=== PATIENT | male | born 1960 | race Hispanic/Latino ===

== ENCOUNTER 2017-09-27 11:00 | Inpatient (IN) | payer MEDICAID, OTHER ==
[~2017-09-27] VITALS: Ht 170.2 cm; Wt 78.9 kg
[~2017-09-27 11:00] MED LIST: BACTRIM-DS1 EA ORAL; DOXYCYCLINE MO100 MG ORAL; KEPPRA LIQ100 MG/1 M NG; KEPPRA500 M3 PO; KEPPRA500 MG ORAL; KEPPRA500 MG PO; KEPRA; LEVETIRACE100 MG/1 M GT; LORAZEPAM1 MG ORAL; METOPROLOL TART25 MG ORAL; NKM; PROTONIX40 MG ORAL; RANITIDINE HCL150 M2 PO; RANITIDINE HCL150 MG ORAL; SUCRALFATE1 GM; SULFAMETHOXAZO480 ML ORAL; TOPAMAX100 MG NG; TOPIRAMATE100 MG ORAL; TOPIRAMATE100 MG PO; TOPIRAMATE25 MG PO; UNOBMED; ZYPREXA5 MG ORAL
[2017-09-27] MEDS ORDERED: KEPPRA1000 MG ORAL (11:02)
[2017-09-27 11:08] VITALS: BP 150/89
[2017-09-27] MEDS ORDERED: Sodium Chloride 500ML 500 ML IV ONE (11:34)
[2017-09-27] MEDS ORDERED: levETIRAcetam 1,000mg/NS100ml 100 ML IVPB ONE (11:45)
[2017-09-27 12:34] LABS: HEMATOCRIT 42.4 % (42.0-52.0); MEAN CORPUSCULAR VOLUME 103 FL (80-99); PLATELET COUNT 202 K/UL (150-450); RED BLOOD COUNT 4.12 M/UL (4.70-6.10); RED CELL DISTRIBUTION WIDTH 13.9 % (11.6-14.8); WHITE BLOOD COUNT 10.4 K/UL (4.8-10.8)
[2017-09-27 12:45] LABS: ALANINE AMINOTRANSFERASE 86 U/L (12-78); ALBUMIN 4.2 G/DL (3.4-5.0); ALBUMIN/GLOBULIN RATIO 1.1 (1.0-2.7); ALKALINE PHOSPHATASE 92 U/L (46-116); ANION GAP 32 mmol/L (5-15); ASPARTATE AMINO TRANSFERASE 166 U/L (15-37); BILIRUBIN,TOTAL 0.8 MG/DL (0.2-1.0); BLOOD UREA NITROGEN 15 mg/dL (7-18); CALCIUM 8.9 MG/DL (8.5-10.1); CHLORIDE 100 MMOL/L (98-107); CREATININE 1.9 MG/DL (0.55-1.30); POTASSIUM 4.7 MMOL/L (3.5-5.1); SODIUM 140 MMOL/L (136-145)
[2017-09-27 12:50] LABS: CARBON DIOXIDE 8 MMOL/L (21-32)
[2017-09-27 13:07] VITALS: BP 158/82
[2017-09-27] MEDS ORDERED: LORazepam Inj 2mg/ml 1ml IV ONE ×2 (13:15→14:30)
--- NOTE | 2017-09-27 13:57 | Emergency Room Report ---
History of Present Illness General Chief Complaint: Seizure Source: Patient, Medical Record Present Illness HPI 57-year-old male presents ED for evaluation. Patient had a seizure at home. Witnessed by family. 1 minute while in bed. No head injury. History of seizures takes Keppra. Patient states he did not take his morning dose of Keppra. Denies alcohol use. Denies any drug use. Denies any headaches fevers or chills. Denies nausea or vomiting. No other aggravating relieving factors. Denies any other associated symptoms Allergies: Coded Allergies: AMOXICILLIN (Verified Allergy, Unknown, 09/07/08) EGG (Verified Allergy, Unknown, RASH, 12/23/10) PENICILLIN (Unverified Allergy, Unknown, 01/05/15) PENICILLINS (Verified Allergy, Unknown, Rash, 01/27/12) Pork (Unverified Allergy, Unknown, 12/28/13) copied from uncoded section UNABLE TO ASSESS (Unverified , 01/25/15) Patient History Past Medical History: seizures Past Surgical History: none Pertinent Family History: none Social History: Reports: alcohol use; Denies: smoking, drug use Immunizations: UTD Reviewed Nursing Documentation: PMH: Agreed; PSxH: Agreed Nursing Documentation-PMH Past Medical History: No History, Except For Hx Cardiac Problems: Yes Hx Hypertension: Yes Hx Diabetes: Yes Hx Cancer: No Hx Gastrointestinal Problems: No Hx Neurological Problems: Yes - seizure Hx Seizures: Yes Review of Systems All Other Systems: negative except mentioned in HPI Physical Exam Vital Signs Date Time Temp Pulse Resp B/P (MAP) Pulse Ox O2 Delivery O2 Flow Rate FiO2 09/27/17 10:58 98.8 120 13 154/86 98 Room Air 98.8 Sp02 EP Interpretation: reviewed, normal General Appearance: no apparent distress, alert, GCS 15, non-toxic Head: normocephalic, atraumatic Eyes: bilateral eye normal inspection, bilateral eye PERRL ENT: hearing grossly normal, normal pharynx, no angioedema, normal voice Neck: full range of motion, supple/symm/no masses Respiratory: chest non-tender, lungs clear, normal breath sounds, speaking full sentences Cardiovascular #1: regular rate, rhythm, no edema Cardiovascular #2: 2+ carotid (R), 2+ carotid (L), 2+ radial (R), 2+ radial (L) , 2+ dorsalis pedis (R), 2+ dorsalis pedis (L) Gastrointestinal: normal bowel sounds, non tender, soft, non-distended, no guarding, no rebound Rectal: deferred Genitourinary: normal inspection, no CVA tenderness Musculoskeletal: back normal, gait/station normal, normal range of motion, non- tender Neurologic: alert, oriented x3, responsive, motor strength/tone normal, sensory intact, speech normal Psychiatric: judgement/insight normal, memory normal, mood/affect normal, no suicidal/homicidal ideation Reflexes: 3+ bicep (R), 3+ bicep (L), 3+ tricep (R), 3+ tricep (L), 3+ knee (R) , 3+ knee (L) Skin: normal color, no rash, warm/dry, well hydrated Lymphatic: no adenopathy Medical Decision Making Diagnostic Impression: Primary Impression: Acute alcoholic intoxication Qualified Codes: F10.929 - Alcohol use, unspecified with intoxication, unspecified Additional Impression: Seizure Labs Test 09/27/17 12:07 White Blood Count 10.4 K/UL (4.8-10.8) Red Blood Count 4.12 M/UL (4.70-6.10) Hemoglobin 14.0 G/DL (14.2-18.0) Hematocrit 42.4 % (42.0-52.0) Mean Corpuscular Volume 103 FL (80-99) Mean Corpuscular Hemoglobin 33.9 PG (27.0-31.0) Mean Corpuscular Hemoglobin Concent 33.0 G/DL (32.0-36.0) Red Cell Distribution Width 13.9 % (11.6-14.8) Platelet Count 202 K/UL (150-450) Mean Platelet Volume 8.5 FL (6.5-10.1) Neutrophils (%) (Auto) % (45.0-75.0) Lymphocytes (%) (Auto) % (20.0-45.0) Monocytes (%) (Auto) % (1.0-10.0) Eosinophils (%) (Auto) % (0.0-3.0) Basophils (%) (Auto) % (0.0-2.0) Differential Total Cells Counted 100 Neutrophils % (Manual) 92 % (45-75) Lymphocytes % (Manual) 4 % (20-45) Monocytes % (Manual) 3 % (1-10) Eosinophils % (Manual) 0 % (0-3) Basophils % (Manual) 1 % (0-2) Band Neutrophils 0 % (0-8) Platelet Estimate Adequate Platelet Morphology Normal Macrocytosis 1+ Sodium Level 140 MMOL/L (136-145) Potassium Level 4.7 MMOL/L (3.5-5.1) Chloride Level 100 MMOL/L (98-107) Carbon Dioxide Level 8 MMOL/L (21-32) Anion Gap 32 mmol/L (5-15) Blood Urea Nitrogen 15 mg/dL (7-18) Creatinine 1.9 MG/DL (0.55-1.30) Estimat Glomerular Filtration Rate 36.5 mL/min (>60) Glucose Level 127 MG/DL (74-106) Calcium Level 8.9 MG/DL (8.5-10.1) Total Bilirubin 0.8 MG/DL (0.2-1.0) Aspartate Amino Transf (AST/SGOT) 166 U/L (15-37) Alanine Aminotransferase (ALT/SGPT) 86 U/L (12-78) Alkaline Phosphatase 92 U/L (46-116) Total Protein 8.1 G/DL (6.4-8.2) Albumin 4.2 G/DL (3.4-5.0) Globulin 3.9 g/dL Albumin/Globulin Ratio 1.1 (1.0-2.7) Salicylates Level 2.5 ug/mL (2.8-20) Acetaminophen Level < 2 MCG/ML (10-30) Serum Alcohol 91 mg/dL Last Vital Signs Date Time Temp Pulse Resp B/P (MAP) Pulse Ox O2 Delivery O2 Flow Rate FiO2 09/27/17 13:07 98.4 122 18 158/82 98 Room Air 98.4 Status: improved Referrals: [facility],REFERRING (PCP) Caleb Pandya MD Sep 27, 2017 13:57
[2017-09-27 14:59] LABS: APPEARANCE,URINE CLEAR; BILIRUBIN, URINE NEGATIVE (NEGATIVE); GLUCOSE, URINE (UA) NEGATIVE (NEGATIVE); KETONES,URINE 3+ (NEGATIVE); LEUKOCYTE ESTERASE ,URINE NEGATIVE (NEGATIVE); NITRITE,URINE NEGATIVE (NEGATIVE); PH,URINE 5 (4.5-8.0); PROTEIN,URINE 2+ (NEGATIVE); UROBILINOGEN,URINE 4 MG/DL (0.0-1.0)
[2017-09-27 15:00] VITALS: BP 153/84
[2017-09-27 15:11] LABS: COLOR,URINE YELLOW
[2017-09-27 17:10] VITALS: BP 152/80
[2017-09-27] MEDS ORDERED: Mylanta II UD 30ml ORAL PRN ×2 (17:45)
[2017-09-27] MEDS ORDERED: Miralax 17gm pkt ORAL PRN (17:45)
[2017-09-27] MEDS ORDERED: Morphine Sulfate 2mg/ml Inj IVP PRN (17:45)
[2017-09-27] MEDS ORDERED: chlordiazePOXIDE 25mg Cap ORAL PRN (17:45)
[2017-09-27] MEDS ORDERED: LORazepam Inj 2mg/ml 1ml IV PRN ×2 (17:45)
[2017-09-27 20:00] VITALS: BP 150/89
[2017-09-27] MEDS ORDERED: Folic Acid 1 MG, Magnesium Sulfate 2,000 MG, Multivitamin - 12 Injection 10 ML in NS w/... IV SCH (20:00)
[2017-09-27] MEDS ORDERED: Thiamine HCl 100 MG in D5W 110 ML IVPB SCH (20:00)
[2017-09-27] MEDS: Heparin 5000 units/ml inj SUBQ SCH (20:48)
[2017-09-27] MEDS ORDERED: Heparin 5000 units/ml inj SUBQ SCH (21:00)
[2017-09-27] MEDS ORDERED: Zolpidem 5mg tab ORAL PRN (21:00)
[2017-09-28] VITALS: BP 138/78
[2017-09-28 04:00] VITALS: BP 142/82
[2017-09-28 06:00] LABS: BASOPHILS % (AUTO) 1.7 % (0.0-2.0); EOSINOPHILS % (AUTO) 0.3 % (0.0-3.0); HEMATOCRIT 36.5 % (42.0-52.0); HEMOGLOBIN 12.9 G/DL (14.2-18.0); LYMPHOCYTES % (AUTO) 13.7 % (20.0-45.0); MEAN CORPUSCULAR VOLUME 102 FL (80-99); MONOCYTES % (AUTO) 12.1 % (1.0-10.0); NEUTROPHILS % (AUTO) 72.2 % (45.0-75.0); PLATELET COUNT 138 K/UL (150-450); RED BLOOD COUNT 3.58 M/UL (4.70-6.10); RED CELL DISTRIBUTION WIDTH 13.4 % (11.6-14.8); WHITE BLOOD COUNT 7.1 K/UL (4.8-10.8)
[2017-09-28 06:07] LABS: ALANINE AMINOTRANSFERASE 67 U/L (12-78); ALBUMIN 3.6 G/DL (3.4-5.0); ALBUMIN/GLOBULIN RATIO 1.1 (1.0-2.7); ALKALINE PHOSPHATASE 74 U/L (46-116); ANION GAP 16 mmol/L (5-15); ASPARTATE AMINO TRANSFERASE 87 U/L (15-37); BILIRUBIN,TOTAL 1.9 MG/DL (0.2-1.0); BLOOD UREA NITROGEN 16 mg/dL (7-18); CALCIUM 8.1 MG/DL (8.5-10.1); CARBON DIOXIDE 21 MMOL/L (21-32); CHLORIDE 101 MMOL/L (98-107); CREATININE 1.4 MG/DL (0.55-1.30); POTASSIUM 4.1 MMOL/L (3.5-5.1); SODIUM 138 MMOL/L (136-145)
[2017-09-28 06:32] LABS: BILIRUBIN,DIRECT 0.6 MG/DL (0.0-0.3)
[2017-09-28 08:00] VITALS: BP 137/80
[2017-09-28] MEDS: Heparin 5000 units/ml inj SUBQ SCH (09:00)
--- NOTE | 2017-09-28 11:07 | History and Physical ---
History of Present Illness General Date patient seen: Sep 27, 2017 Reason for Hospitalization: Seizure Present Illness HPI 57-year-old male presents ED for evaluation. Patient had a seizure at home. Witnessed by family. 1 minute while in bed. No head injury. History of seizures takes Keppra. Patient states he did not take his morning dose of Keppra. Denies alcohol use. Denies any drug use. Denies any headaches fevers or chills. Denies nausea or vomiting. No other aggravating relieving factors. Denies any other associated symptoms Allergies: Coded Allergies: AMOXICILLIN (Verified Allergy, Unknown, 09/07/08) EGG (Verified Allergy, Unknown, RASH, 12/23/10) PENICILLIN (Unverified Allergy, Unknown, 01/05/15) PENICILLINS (Verified Allergy, Unknown, Rash, 01/27/12) Pork (Unverified Allergy, Unknown, 12/28/13) copied from uncoded section UNABLE TO ASSESS (Unverified , 01/25/15) Medication History Scheduled Levetiracetam (Keppra), 1,000 MG ORAL BID, (Reported) Levetiracetam (Keppra), 1,500 MG ORAL EVERY 12 HOURS, (Reported) Levetiracetam (Levetiracetam), 500 MG PO BID, (Reported) Levetiracetam (Keppra), 1,000 MG ORAL TID, (Reported) Levetiracetam* (Levetiracetam*), Unknown Dose GT BID, (Reported) Metoprolol Tartrate* (Metoprolol Tartrate*), 25 MG ORAL EVERY 12 HOURS, ( Reported) No Known Medications* (NKM - No Known Medications*), 0 ., (Reported) Olanzapine* (Zyprexa*), 5 MG ORAL DAILY, (Reported) Pantoprazole* (Protonix*), 40 MG ORAL EVERY 12 HOURS, (Reported) Miscellaneous Medications Sucralfate* (Carafate*), (Reported) Unable to Obtain Medications (Unable To Obtain Meds), (Reported) Patient History Healthcare decision maker Resuscitation status Full Code Advanced Directive on File Past Medical/Surgical History Past Medical/Surgical History: (1) Psychosis (2) Seizure (3) Alcohol abuse Review of Systems All Other Systems: negative except mentioned in HPI Physical Exam General Appearance: WD/WN, no apparent distress Lines, tubes and drains: peripheral HEENT: normocephalic, atraumatic Neck: non-tender, normal alignment Respiratory/Chest: chest wall non-tender, lungs clear Breasts: no masses Cardiovascular/Chest: normal rate Abdomen: normal bowel sounds, hyperactive bowel sounds Genitourinary/Rectal: normal genital exam Last 24 Hour Vital Signs Date Time Temp Pulse Resp B/P (MAP) Pulse Ox O2 Delivery O2 Flow Rate FiO2 09/28/17 08:00 82 09/28/17 08:00 97.7 84 18 137/80 96 Room Air 97.7 09/28/17 04:00 98.2 89 20 142/82 99 Room Air 98.2 09/28/17 04:00 87 09/28/17 00:00 101 09/28/17 00:00 98.4 105 20 138/78 98 Room Air 98.4 09/27/17 20:00 99.3 113 20 150/89 98 Room Air 99.3 09/27/17 20:00 114 09/27/17 19:20 98.5 118 16 156/77 98 Room Air 98.4 09/27/17 19:14 112 09/27/17 17:10 98.4 115 17 152/80 98 Room Air 98.4 09/27/17 15:00 98.1 113 16 153/84 96 Room Air 98.1 09/27/17 13:07 98.4 122 18 158/82 98 Room Air 98.4 09/27/17 11:08 129 28 Room Air 09/27/17 11:08 98.8 129 28 150/89 100 Room Air 98.8 Intake and Output 09/27/17 09/28/17 19:00 07:00 Intake Total 1600 ml Output Total 200 ml Balance 1400 ml IV Total 1600 ml Output Emesis 200 ml # Voids 3 Laboratory Tests Test 09/27/17 12:07 09/27/17 14:35 09/28/17 04:50 White Blood Count 10.4 K/UL (4.8-10.8) 7.1 K/UL (4.8-10.8) Red Blood Count 4.12 M/UL (4.70-6.10) L 3.58 M/UL (4.70-6.10) L Hemoglobin 14.0 G/DL (14.2-18.0) L 12.9 G/DL (14.2-18.0) L Hematocrit 42.4 % (42.0-52.0) 36.5 % (42.0-52.0) L Mean Corpuscular Volume 103 FL (80-99) H 102 FL (80-99) H Mean Corpuscular Hemoglobin 33.9 PG (27.0-31.0) H 36.1 PG (27.0-31.0) H Mean Corpuscular Hemoglobin Concent 33.0 G/DL (32.0-36.0) 35.4 G/DL (32.0-36.0) Red Cell Distribution Width 13.9 % (11.6-14.8) 13.4 % (11.6-14.8) Platelet Count 202 K/UL (150-450) 138 K/UL (150-450) L Mean Platelet Volume 8.5 FL (6.5-10.1) 8.8 FL (6.5-10.1) Neutrophils (%) (Auto) % (45.0-75.0) 72.2 % (45.0-75.0) Lymphocytes (%) (Auto) % (20.0-45.0) 13.7 % (20.0-45.0) L Monocytes (%) (Auto) % (1.0-10.0) 12.1 % (1.0-10.0) H Eosinophils (%) (Auto) % (0.0-3.0) 0.3 % (0.0-3.0) Basophils (%) (Auto) % (0.0-2.0) 1.7 % (0.0-2.0) Differential Total Cells Counted 100 Neutrophils % (Manual) 92 % (45-75) H Lymphocytes % (Manual) 4 % (20-45) L Monocytes % (Manual) 3 % (1-10) Eosinophils % (Manual) 0 % (0-3) Basophils % (Manual) 1 % (0-2) Band Neutrophils 0 % (0-8) Platelet Estimate Adequate Platelet Morphology Normal Macrocytosis 1+ Sodium Level 140 MMOL/L (136-145) 138 MMOL/L (136-145) Potassium Level 4.7 MMOL/L (3.5-5.1) 4.1 MMOL/L (3.5-5.1) Chloride Level 100 MMOL/L (98-107) 101 MMOL/L (98-107) Carbon Dioxide Level 8 MMOL/L (21-32) *L 21 MMOL/L (21-32) Anion Gap 32 mmol/L (5-15) H 16 mmol/L (5-15) H Blood Urea Nitrogen 15 mg/dL (7-18) 16 mg/dL (7-18) Creatinine 1.9 MG/DL (0.55-1.30) H 1.4 MG/DL (0.55-1.30) H Estimat Glomerular Filtration Rate 36.5 mL/min (>60) 51.9 mL/min (>60) Glucose Level 127 MG/DL (74-106) H 93 MG/DL (74-106) Calcium Level 8.9 MG/DL (8.5-10.1) 8.1 MG/DL (8.5-10.1) L Total Bilirubin 0.8 MG/DL (0.2-1.0) 1.9 MG/DL (0.2-1.0) H Aspartate Amino Transf (AST/SGOT) 166 U/L (15-37) H 87 U/L (15-37) H Alanine Aminotransferase (ALT/SGPT) 86 U/L (12-78) H 67 U/L (12-78) Alkaline Phosphatase 92 U/L (46-116) 74 U/L (46-116) Total Protein 8.1 G/DL (6.4-8.2) 6.9 G/DL (6.4-8.2) Albumin 4.2 G/DL (3.4-5.0) 3.6 G/DL (3.4-5.0) Globulin 3.9 g/dL 3.3 g/dL Albumin/Globulin Ratio 1.1 (1.0-2.7) 1.1 (1.0-2.7) Salicylates Level 2.5 ug/mL (2.8-20) L Acetaminophen Level < 2 MCG/ML (10-30) L Serum Alcohol 91 mg/dL Urine Color Yellow Urine Appearance Clear Urine pH 5 (4.5-8.0) Urine Specific [place] 1.020 (1.005-1.035) Urine Protein 2+ (NEGATIVE) H Urine Glucose (UA) Negative (NEGATIVE) Urine Ketones 3+ (NEGATIVE) H Urine Occult Blood 2+ (NEGATIVE) H Urine Nitrite Negative (NEGATIVE) Urine Bilirubin Negative (NEGATIVE) Urine Urobilinogen 4 MG/DL (0.0-1.0) H Urine Leukocyte Esterase Negative (NEGATIVE) Urine RBC 2-4 /HPF (0 - 0) H Urine WBC 0-2 /HPF (0 - 0) Urine Squamous Epithelial Cells None /LPF (NONE/OCC) Urine Bacteria Few /HPF (NONE) Direct Bilirubin 0.6 MG/DL (0.0-0.3) H Height (Feet): 5 Height (Inches): 7.00 Weight (Pounds): 174 Medications Current Medications Medications (Trade) Dose Ordered Sig/Tosha Route PRN Reason Start Time Stop Time Status Last Admin Dose Admin Acetaminophen (Tylenol) 650 mg Q4H PRN ORAL fever (temp>100.5F) 09/27/17 17:45 10/27/17 17:44 Al Hydroxide/Mg Hydroxide (Mylanta II) 30 ml Q6H PRN ORAL dyspepsia 09/27/17 17:45 10/27/17 17:44 Chlordiazepoxide (Librium) 25 mg Q6H PRN ORAL Agitation 09/27/17 17:45 10/04/17 17:44 Dextrose (Dextrose 50%) 25 ml STAT PRN IV Hypoglycemia 09/27/17 17:45 10/27/17 17:44 Dextrose (Dextrose 50%) 50 ml STAT PRN IV Hypoglycemia 09/27/17 17:45 10/27/17 17:44 Folic Acid 1 mg/ Magnesium Sulfate 2000 mg/ Multivitamins 10 ml/Sodium Chloride 1,014.2 ml @ 124.876 mls/hr Q24H IV 09/27/17 20:00 10/27/17 19:59 09/27/17 20:31 Heparin Sodium (Porcine) (Heparin 5000 units/ml) 5,000 units EVERY 12 HOURS SUBQ 09/27/17 21:00 10/27/17 20:59 09/27/17 20:48 Lorazepam (Ativan 2mg/ml 1ml) 2 mg Q1H PRN IV seizures 09/27/17 17:45 10/04/17 17:44 Morphine Sulfate (Morphine Sulfate) 1 mg Q4H PRN IVP For Pain 09/27/17 17:45 10/04/17 17:44 Ondansetron HCl (Zofran) 4 mg Q6H PRN IVP Nausea & Vomiting 09/27/17 17:45 10/27/17 17:44 Polyethylene Glycol (Miralax) 17 gm HSPRN PRN ORAL Constipation 09/27/17 17:45 10/27/17 17:44 Thiamine HCl 100 mg/Dextrose 111 ml @ 222 mls/hr Q24H IVPB 09/27/17 20:00 10/27/17 19:59 09/27/17 20:31 Zolpidem Tartrate (Ambien) 5 mg HSPRN PRN ORAL Insomnia 09/27/17 21:00 10/04/17 20:59 Assessment/Plan Problem List: (1) Epileptic seizure, generalized ICD Codes: G40.309 - Generalized idiopathic epilepsy and epileptic syndromes, not intractable, without status epilepticus SNOMED: 90206870 (2) Alcohol abuse ICD Codes: F10.10 - Alcohol abuse, uncomplicated SNOMED: 90906575 (3) Acute alcoholic intoxication ICD Codes: F10.129 - Alcohol abuse with intoxication, unspecified SNOMED: 26041016 Qualifiers: Qualified Codes: F10.929 - Alcohol use, unspecified with intoxication, unspecified Assessment/Plan symptomatic treatment iv fluids seizure precaution Cheryl Sarkar MD Sep 28, 2017 11:07
--- NOTE | 2017-09-28 11:08 | Pulmonology Progress Note ---
Assessment/Plan Problems: (1) Epileptic seizure, generalized (2) Alcohol abuse (3) Acute alcoholic intoxication Assessment/Plan improving no more seizures resume [facility] home Subjective ROS Limited/Unobtainable: No Interval Events: doing better Allergies: Coded Allergies: AMOXICILLIN (Verified Allergy, Unknown, 09/07/08) EGG (Verified Allergy, Unknown, RASH, 12/23/10) PENICILLIN (Unverified Allergy, Unknown, 01/05/15) PENICILLINS (Verified Allergy, Unknown, Rash, 01/27/12) Pork (Unverified Allergy, Unknown, 12/28/13) copied from uncoded section UNABLE TO ASSESS (Unverified , 01/25/15) Objective Last 24 Hour Vital Signs Date Time Temp Pulse Resp B/P (MAP) Pulse Ox O2 Delivery O2 Flow Rate FiO2 09/28/17 08:00 82 09/28/17 08:00 97.7 84 18 137/80 96 Room Air 97.7 09/28/17 04:00 98.2 89 20 142/82 99 Room Air 98.2 09/28/17 04:00 87 09/28/17 00:00 101 09/28/17 00:00 98.4 105 20 138/78 98 Room Air 98.4 09/27/17 20:00 99.3 113 20 150/89 98 Room Air 99.3 09/27/17 20:00 114 09/27/17 19:20 98.5 118 16 156/77 98 Room Air 98.4 09/27/17 19:14 112 09/27/17 17:10 98.4 115 17 152/80 98 Room Air 98.4 09/27/17 15:00 98.1 113 16 153/84 96 Room Air 98.1 09/27/17 13:07 98.4 122 18 158/82 98 Room Air 98.4 09/27/17 11:08 129 28 Room Air 09/27/17 11:08 98.8 129 28 150/89 100 Room Air 98.8 Intake and Output 09/27/17 09/28/17 19:00 07:00 Intake Total 1600 ml Output Total 200 ml Balance 1400 ml IV Total 1600 ml Output Emesis 200 ml # Voids 3 General Appearance: WD/WN HEENT: normocephalic Respiratory/Chest: chest wall non-tender, lungs clear Cardiovascular: normal peripheral pulses, normal rate Abdomen: normal bowel sounds, no organomegaly Extremities: no cyanosis Skin: no rash Laboratory Tests 09/27/17 12:07: White Blood Count 10.4, Red Blood Count 4.12L, Hemoglobin 14.0L, Hematocrit 42.4 , Mean Corpuscular Volume 103H, Mean Corpuscular Hemoglobin 33.9H, Mean Corpuscular Hemoglobin Concent 33.0, Red Cell Distribution Width 13.9, Platelet Count 202, Mean Platelet Volume 8.5, Neutrophils (%) (Auto) , Lymphocytes (%) ( Auto) , Monocytes (%) (Auto) , Eosinophils (%) (Auto) , Basophils (%) (Auto) , Differential Total Cells Counted 100, Neutrophils % (Manual) 92H, Lymphocytes % (Manual) 4L, Monocytes % (Manual) 3, Eosinophils % (Manual) 0, Basophils % ( Manual) 1, Band Neutrophils 0, Platelet Estimate Adequate, Platelet Morphology Normal, Macrocytosis 1+, Sodium Level 140, Potassium Level 4.7, Chloride Level 100, Carbon Dioxide Level 8*L, Anion Gap 32H, Blood Urea Nitrogen 15, Creatinine 1.9H, Estimat Glomerular Filtration Rate 36.5, Glucose Level 127H, Calcium Level 8.9, Total Bilirubin 0.8, Aspartate Amino Transf (AST/SGOT) 166H, Alanine Aminotransferase (ALT/SGPT) 86H, Alkaline Phosphatase 92, Total Protein 8.1, Albumin 4.2, Globulin 3.9, Albumin/Globulin Ratio 1.1, Salicylates Level 2.5L, Acetaminophen Level < 2L, Serum Alcohol 91 09/27/17 14:35: Urine Color Yellow, Urine Appearance Clear, Urine pH 5, Urine Specific [place] 1.020, Urine Protein 2+H, Urine Glucose (UA) Negative, Urine Ketones 3+H, Urine Occult Blood 2+H, Urine Nitrite Negative, Urine Bilirubin Negative, Urine Urobilinogen 4H, Urine Leukocyte Esterase Negative, Urine RBC 2-4H, Urine WBC 0- 2, Urine Squamous Epithelial Cells None, Urine Bacteria Few 09/28/17 04:50: White Blood Count 7.1, Red Blood Count 3.58L, Hemoglobin 12.9L, Hematocrit 36.5L , Mean Corpuscular Volume 102H, Mean Corpuscular Hemoglobin 36.1H, Mean Corpuscular Hemoglobin Concent 35.4, Red Cell Distribution Width 13.4, Platelet Count 138L, Mean Platelet Volume 8.8, Neutrophils (%) (Auto) 72.2, Lymphocytes ( %) (Auto) 13.7L, Monocytes (%) (Auto) 12.1H, Eosinophils (%) (Auto) 0.3, Basophils (%) (Auto) 1.7, Sodium Level 138, Potassium Level 4.1, Chloride Level 101, Carbon Dioxide Level 21, Anion Gap 16H, Blood Urea Nitrogen 16, Creatinine 1.4H, Estimat Glomerular Filtration Rate 51.9, Glucose Level 93, Calcium Level 8.1L, Total Bilirubin 1.9H, Aspartate Amino Transf (AST/SGOT) 87H, Alanine Aminotransferase (ALT/SGPT) 67, Alkaline Phosphatase 74, Total Protein 6.9, Albumin 3.6, Globulin 3.3, Albumin/Globulin Ratio 1.1, Direct Bilirubin 0.6H Current Medications Medications (Trade) Dose Ordered Sig/Tosha Route PRN Reason Start Time Stop Time Status Last Admin Dose Admin Acetaminophen (Tylenol) 650 mg Q4H PRN ORAL fever (temp>100.5F) 09/27/17 17:45 10/27/17 17:44 Al Hydroxide/Mg Hydroxide (Mylanta II) 30 ml Q6H PRN ORAL dyspepsia 09/27/17 17:45 10/27/17 17:44 Chlordiazepoxide (Librium) 25 mg Q6H PRN ORAL Agitation 09/27/17 17:45 10/04/17 17:44 Dextrose (Dextrose 50%) 25 ml STAT PRN IV Hypoglycemia 09/27/17 17:45 10/27/17 17:44 Dextrose (Dextrose 50%) 50 ml STAT PRN IV Hypoglycemia 09/27/17 17:45 10/27/17 17:44 Folic Acid 1 mg/ Magnesium Sulfate 2000 mg/ Multivitamins 10 ml/Sodium Chloride 1,014.2 ml @ 124.876 mls/hr Q24H IV 09/27/17 20:00 10/27/17 19:59 09/27/17 20:31 Heparin Sodium (Porcine) (Heparin 5000 units/ml) 5,000 units EVERY 12 HOURS SUBQ 09/27/17 21:00 10/27/17 20:59 09/27/17 20:48 Lorazepam (Ativan 2mg/ml 1ml) 2 mg Q1H PRN IV seizures 09/27/17 17:45 10/04/17 17:44 Morphine Sulfate (Morphine Sulfate) 1 mg Q4H PRN IVP For Pain 09/27/17 17:45 10/04/17 17:44 Ondansetron HCl (Zofran) 4 mg Q6H PRN IVP Nausea & Vomiting 09/27/17 17:45 10/27/17 17:44 Polyethylene Glycol (Miralax) 17 gm HSPRN PRN ORAL Constipation 09/27/17 17:45 10/27/17 17:44 Thiamine HCl 100 mg/Dextrose 111 ml @ 222 mls/hr Q24H IVPB 09/27/17 20:00 10/27/17 19:59 09/27/17 20:31 Zolpidem Tartrate (Ambien) 5 mg HSPRN PRN ORAL Insomnia 09/27/17 21:00 10/04/17 20:59 Cheryl Sarkar MD Sep 28, 2017 11:08
[2017-09-28] MEDS ORDERED: Tubing IV Secondary IV ONE ×2 (13:09)
[2017-09-28] MEDS ORDERED: D5W 275ml ONE ×2 (13:09)
--- NOTE | 2017-09-29 08:01 | Discharge Summary ---
Discharge Summary Discharge Summary Discharge Summary DATE OF ADMISSION: 09/27/2017 DATE OF DISCHARGE: 09/28/2017 REASON FOR ADMISSION: 57 years old male with a history of hypertension, seizure disorder, presented to emergency department for evaluation. Patient had a seizure at home while in the bed, lasted for 1 minute, witnessed by his family. He had prior history of seizure, on Keppra. Patient reported missing morning dose of Keppra. He denied alcohol use, he denied headache , head injury or trauma. No fever, no chills. He denied nausea, vomiting. Upon evaluation in emergency room serum alcohol level -91. Patient was tachycardic. Patient admitted for acute alcohol intoxication, seizure disorder. HOSPITAL COURSE: Patient admitted to telemetry floor. Telemetry showed sinus tachycardia , no acute ischemic changes. Patient started on Keppra. Seizure precautions wee maintained. Patient was observed for any paroxysmal events. Patient started on IV fluids with banana bag. Librium was on board as needed. Patient was closely observed. Patient gradually improved. No further seizure activity. DVT prophylaxis provided. Patient was stable for discharge. Due to rapid and unexpected improvement in patient condition, patient was discharged in one day FINAL DIAGNOSES: Acute alcohol intoxication. Seizure disorder as a breakthrough episode, possibly due to acute alcohol intoxication. ETOH abuse DISCHARGE MEDICATIONS: See Medication Reconciliation list. DISCHARGE INSTRUCTIONS: Patient was discharged home. Patient was counseled on compliance with medication regimen for seizure disorder and abstinence from alcohol. Follow up with primary care provider. I have been assigned to dictate discharge summary for this account. I was not involved in the patient's management. Lilibeth Mesa NP ([place]) Sep 29, 2017 08:01
== END 2017-09-28 13:10 | disposition home or self-care (01) | DRG 53 ==
LOC: EDBD 11:00 → EMR 11:45 → EDBEDREQ 17:41 → 2E 18:07
DX: G40.309 Generalized idiopathic epilepsy and epileptic syndromes, not intractable, without status epilepticus (principal); I10 Essential (primary) hypertension; F10.129 Alcohol abuse with intoxication, unspecified; Z88.1 Allergy status to other antibiotic agents; Z88.0 Allergy status to penicillin
CPT/HCPCS: 36415; 80053; 80329; 81003; 82248; 82962; 85007; 85025; 99285; J2405

== ENCOUNTER 2017-10-29 08:56 | Emergency (ER) | payer MEDICAID, OTHER ==
[~2017-10-29] VITALS: Ht 172.7 cm; Wt 83.9 kg
[~2017-10-29 08:56] MED LIST changes: +KEPPRA1000 MG ORAL; +KEPPRA500 M4 ORAL
[2017-10-29] MEDS ORDERED: Sodium Chloride 500ML 500 ML IV ONE (09:21)
[2017-10-29] MEDS ORDERED: LORazepam Inj 2mg/ml 1ml IV ONE ×2 (09:30→10:45)
--- NOTE | 2017-10-29 09:32 | Emergency Room Report ---
History of Present Illness General Chief Complaint: Seizure Source: Patient, Family Member, EMS Present Illness HPI Patient is brought from home with complaints of seizure activity Patient is on Keppra for reports of paramedics Visualized witnessed tonic-clonic seizure by family There was no reports of vomiting or diarrhea Patient is unknown regarding last seizure activity Presents mildly postictal with some confusion Unknown regarding fevers denies any neck pain at this time or photophobia Allergies: Coded Allergies: AMOXICILLIN (Verified Allergy, Unknown, 09/07/08) EGG (Verified Allergy, Unknown, RASH, 12/23/10) PENICILLIN (Unverified Allergy, Unknown, 01/05/15) PENICILLINS (Verified Allergy, Unknown, Rash, 01/27/12) Pork (Unverified Allergy, Unknown, 12/28/13) copied from uncoded section UNABLE TO ASSESS (Unverified , 01/25/15) Patient History Past Medical History: see triage record Pertinent Family History: none Reviewed Nursing Documentation: PMH: Agreed; PSxH: Agreed Nursing Documentation-PMH Past Medical History: No History, Except For Hx Cardiac Problems: Yes Hx Hypertension: Yes Hx Diabetes: Yes Hx Cancer: No Hx Gastrointestinal Problems: No History Of Psychiatric Problem: No - SUBSTANCE ABUSE Hx Neurological Problems: Yes - seizure Hx Seizures: Yes Review of Systems All Other Systems: negative except mentioned in HPI Physical Exam Vital Signs Date Time Temp Pulse Resp B/P (MAP) Pulse Ox O2 Delivery O2 Flow Rate FiO2 10/29/17 08:53 130 20 158/93 96 Room Air Sp02 EP Interpretation: reviewed, normal General Appearance: no apparent distress, alert Head: normocephalic, atraumatic Eyes: bilateral eye PERRL, bilateral eye EOMI ENT: normal pharynx Neck: full range of motion, supple Respiratory: chest non-tender, lungs clear Cardiovascular #1: regular rate, rhythm Gastrointestinal: non tender, soft Musculoskeletal: other - Chronic deformity to the lower extremity moving upper extremity without focal deficit Neurologic: alert, responsive - Mildly postictal Skin: normal color, no rash Lymphatic: no adenopathy Medical Decision Making Diagnostic Impression: Primary Impression: Epileptic seizure, generalized Additional Impression: Seizure disorder ER Course Patient presents with complaint of seizure activity Complex requiring multiple blood work and imaging Patient had further seizure activity here Requiring IV Keppra Patient was also tachycardic receiving further IV hydration Consideration for febrile illness and sepsis is also considered Patient requiring admission for further care Labs Test 10/29/17 09:25 10/29/17 11:55 White Blood Count 7.7 K/UL (4.8-10.8) Red Blood Count 3.94 M/UL (4.70-6.10) Hemoglobin 13.7 G/DL (14.2-18.0) Hematocrit 40.3 % (42.0-52.0) Mean Corpuscular Volume 102 FL (80-99) Mean Corpuscular Hemoglobin 34.9 PG (27.0-31.0) Mean Corpuscular Hemoglobin Concent 34.1 G/DL (32.0-36.0) Red Cell Distribution Width 12.3 % (11.6-14.8) Platelet Count 168 K/UL (150-450) Mean Platelet Volume 9.4 FL (6.5-10.1) Neutrophils (%) (Auto) % (45.0-75.0) Lymphocytes (%) (Auto) % (20.0-45.0) Monocytes (%) (Auto) % (1.0-10.0) Eosinophils (%) (Auto) % (0.0-3.0) Basophils (%) (Auto) % (0.0-2.0) Differential Total Cells Counted 100 Neutrophils % (Manual) 85 % (45-75) Lymphocytes % (Manual) 6 % (20-45) Monocytes % (Manual) 5 % (1-10) Eosinophils % (Manual) 0 % (0-3) Basophils % (Manual) 0 % (0-2) Band Neutrophils 4 % (0-8) Platelet Estimate Adequate Platelet Morphology Normal Hypochromasia 1+ Macrocytosis 1+ Sodium Level 142 MMOL/L (136-145) Potassium Level 4.6 MMOL/L (3.5-5.1) Chloride Level 103 MMOL/L (98-107) Carbon Dioxide Level 14 MMOL/L (21-32) Anion Gap 25 mmol/L (5-15) Blood Urea Nitrogen 11 mg/dL (7-18) Creatinine 1.6 MG/DL (0.55-1.30) Estimat Glomerular Filtration Rate 44.5 mL/min (>60) Glucose Level 142 MG/DL (74-106) Calcium Level 9.2 MG/DL (8.5-10.1) Total Bilirubin 0.6 MG/DL (0.2-1.0) Aspartate Amino Transf (AST/SGOT) 59 U/L (15-37) Alanine Aminotransferase (ALT/SGPT) 35 U/L (12-78) Alkaline Phosphatase 92 U/L (46-116) Total Creatine Kinase 152 U/L (26-308) Creatine Kinase MB 0.9 NG/ML (0.0-3.6) Creatine Kinase MB Relative Index 0.5 Total Protein 8.0 G/DL (6.4-8.2) Albumin 4.2 G/DL (3.4-5.0) Globulin 3.8 g/dL Albumin/Globulin Ratio 1.1 (1.0-2.7) Urine Opiates Screen Negative (NEGATIVE) Urine Barbiturates Screen Negative (NEGATIVE) Phencyclidine (PCP) Screen Negative (NEGATIVE) Urine Amphetamines Screen Negative (NEGATIVE) Urine Benzodiazepines Screen Negative (NEGATIVE) Urine Cocaine Screen Negative (NEGATIVE) Urine Marijuana (THC) Screen Negative (NEGATIVE) Rhythm Strip Diag. Results EP Interpretation: yes Rate: 110 Rhythm: no PVC's, no ectopy, other - sinus tach Chest X-Ray Diagnostic Results Chest X-Ray Diagnostic Results : Chest X-Ray Ordered: Yes # of Views/Limited/Complete: 1 View Indication: Chest Pain EP Interpretation: Yes Interpretation: no consolidation, no effusion, no pneumothorax Impression: No acute disease Electronically Signed by: David Tolbert DO Last Vital Signs Date Time Temp Pulse Resp B/P (MAP) Pulse Ox O2 Delivery O2 Flow Rate FiO2 10/29/17 09:04 98 14 Room Air 10/29/17 08:53 158/93 96 Status: improved Disposition: XFER SHT-TRM HOSP Condition: Serious David Tolbert DO October 29, 2017 09:32
[2017-10-29 09:45] LABS: HEMATOCRIT 40.3 % (42.0-52.0); HEMOGLOBIN 13.7 G/DL (14.2-18.0); MEAN CORPUSCULAR VOLUME 102 FL (80-99); PLATELET COUNT 168 K/UL (150-450); RED BLOOD COUNT 3.94 M/UL (4.70-6.10); RED CELL DISTRIBUTION WIDTH 12.3 % (11.6-14.8); WHITE BLOOD COUNT 7.7 K/UL (4.8-10.8)
[2017-10-29 09:55] LABS: ANION GAP 25 mmol/L (5-15); BLOOD UREA NITROGEN 11 mg/dL (7-18); CALCIUM 9.2 MG/DL (8.5-10.1); CARBON DIOXIDE 14 MMOL/L (21-32); CHLORIDE 103 MMOL/L (98-107); CREATININE 1.6 MG/DL (0.55-1.30); POTASSIUM 4.6 MMOL/L (3.5-5.1); SODIUM 142 MMOL/L (136-145)
[2017-10-29] MEDS ORDERED: LORazepam Inj 2mg/ml 1ml ONE (10:11)
[2017-10-29 10:18] LABS: ALANINE AMINOTRANSFERASE 35 U/L (12-78); ALBUMIN 4.2 G/DL (3.4-5.0); ALBUMIN/GLOBULIN RATIO 1.1 (1.0-2.7); ALKALINE PHOSPHATASE 92 U/L (46-116); ASPARTATE AMINO TRANSFERASE 59 U/L (15-37); BILIRUBIN,TOTAL 0.6 MG/DL (0.2-1.0); CKMB 0.9 NG/ML (0.0-3.6); CREATINE KINASE 152 U/L (26-308)
[2017-10-29 10:30] VITALS: BP 147/78
--- NOTE | 2017-10-29 10:36 | Diagnostic Imaging Report ---
Indication: Chest pain Comparison: 12/03/2014 A single view chest radiograph was obtained. Findings: Cardiomediastinal appearance is within normal limits for age. Pulmonary vascularity is appropriate. The diaphragmatic contour is smooth and costophrenic angles are sharp. No pleural effusions are identified. The bones are unremarkable. Impression: No acute findings
[2017-10-29] MEDS ORDERED: levETIRAcetam 1,000mg/NS100ml 100 ML IVPB ONE (11:00)
[2017-10-29] MEDS ORDERED: Lidocaine 1% MPF 10mg/ml 5ml ONE (12:30)
[2017-10-29 13:13] VITALS: BP 146/70
[2017-10-29 15:22] VITALS: BP 148/76
--- NOTE | 2017-10-30 16:29 | Cardiology Report ---
APPROVED REPORT EKG Measurement Heart [id number] Sinus tachycardia Otherwise normal ECG
== END 2017-10-29 15:22 | disposition short-term general hospital (02) ==
LOC: EDBD 08:56 → EMR 09:41
DX: G40.409 Other generalized epilepsy and epileptic syndromes, not intractable, without status epilepticus (principal); I10 Essential (primary) hypertension; E11.9 Type 2 diabetes mellitus without complications; Z88.0 Allergy status to penicillin; Z91.012 Allergy to eggs
CPT/HCPCS: 36415; 71045; 80053; 80307; 82550; 82553; 85007; 85025; 93005; 96361; 96374; 96375; 99285; J1953; J7040

== ENCOUNTER 2018-01-27 10:59 | Emergency (ER) | payer OTHER ==
[~2018-01-27] VITALS: Ht 170.2 cm; Wt 77.1 kg
[2018-01-27 11:03] VITALS: BP 150/84
[2018-01-27] MEDS ORDERED: Phenytoin 100mg cap ORAL ONE (11:45)
--- NOTE | 2018-01-27 12:30 | Emergency Room Report ---
History of Present Illness General Chief Complaint: Seizure Source: Patient Present Illness HPI Patient presents with reports of possible seizure activity Patient himself is not sure who called the paramedics at this time presents awake and alert Denies any chest pain or short of breath denies any back or flank pain Patient has been here multiple times was seizure activity Patient has been here several times with similar breakthrough seizures Patient continues to the noncompliant with his medications At this time reports that he is not sure which medication he is supposed to be on Allergies: Coded Allergies: AMOXICILLIN (Verified Allergy, Unknown, 09/07/08) EGG (Verified Allergy, Unknown, RASH, 12/23/10) PENICILLIN (Unverified Allergy, Unknown, 01/05/15) PENICILLINS (Verified Allergy, Unknown, Rash, 01/27/12) Pork (Unverified Allergy, Unknown, 12/28/13) copied from uncoded section UNABLE TO ASSESS (Unverified , 01/25/15) Patient History Past Medical History: see triage record Pertinent Family History: none Reviewed Nursing Documentation: PMH: Agreed; PSxH: Agreed Nursing Documentation-PMH Past Medical History: No History, Except For Hx Cardiac Problems: Yes Hx Hypertension: Yes Hx Diabetes: Yes Hx Cancer: No Hx Gastrointestinal Problems: No Hx Neurological Problems: Yes - seizure Hx Seizures: Yes Review of Systems All Other Systems: negative except mentioned in HPI Physical Exam Vital Signs Date Time Temp Pulse Resp B/P (MAP) Pulse Ox O2 Delivery O2 Flow Rate FiO2 01/27/18 10:31 97.8 118 18 150/84 100 Room Air 97.9 Sp02 EP Interpretation: reviewed, normal General Appearance: well appearing, no apparent distress Head: normocephalic, atraumatic Eyes: bilateral eye PERRL, bilateral eye EOMI ENT: hearing grossly normal, normal pharynx, TMs + canals normal, uvula midline Neck: full range of motion, supple, no meningismus, no bony tend Respiratory: lungs clear, normal breath sounds, no rhonchi, no respiratory distress, no retraction, no accessory muscle use Cardiovascular #1: normal peripheral pulses, regular rate, rhythm, no edema, no gallop, no JVD, no murmur Gastrointestinal: normal bowel sounds, non tender, soft, no mass, no organomegaly, non-distended, no guarding, no hernia, no pulsatile mass, no rebound Genitourinary: no CVA tenderness Musculoskeletal: normal inspection - Deformity to the right distal tibial region which is chronic Neurologic: oriented x3, responsive, machine zipper trimmer III-XII nml as tested, motor strength/ tone normal, sensory intact Psychiatric: mood/affect normal Skin: normal color, no rash, warm/dry, palpation normal Lymphatic: normal inspection, no adenopathy Medical Decision Making Diagnostic Impression: Primary Impression: Seizure disorder, convulsive, with status epilepticus ER Course Multiple differentials considered Patient placed on cardiac monitoring Remains awake and alert patient did have questionable seizure in the ER however upon evaluation patient is awake does not show any signs of postictal findings Patient was provided with oral medications observed further and at this time stable for close outpatient follow-up Rhythm Strip Diag. Results EP Interpretation: yes Rate: 66 Rhythm: NSR, no PVC's, no ectopy Last Vital Signs Date Time Temp Pulse Resp B/P (MAP) Pulse Ox O2 Delivery O2 Flow Rate FiO2 01/27/18 11:03 97.9 109 18 150/84 100 T-piece 97.9 Status: improved Disposition: HOME, SELF-CARE Condition: Improved Referrals: [facility]ERR[facility] (PCP) Additional Instructions: Patient is provided with the discharge instructions notified to follow up with primary doctor in the next 2-3 days otherwise return to the er with any worsening symptoms. Please note that this report is being documented using [employer] technology. This can lead to erroneous entry secondary to incorrect interpretation by the dictating instrument. David Tolbert DO Jan 27, 2018 12:30
[2018-01-27 13:10] VITALS: BP 145/75
[2018-01-27 14:00] VITALS: BP 151/83
== END 2018-01-27 14:00 | disposition home or self-care (01) ==
LOC: EDBD 10:59 → EMR 12:05
DX: G40.801 Other epilepsy, not intractable, with status epilepticus (principal); I10 Essential (primary) hypertension; E11.9 Type 2 diabetes mellitus without complications
CPT/HCPCS: 99283

== ENCOUNTER 2018-05-08 10:02 | Emergency (ER) | payer OTHER ==
[~2018-05-08] VITALS: Ht 162.6 cm; Wt 68.0 kg
[2018-05-08 10:12] VITALS: BP 162/79
[2018-05-08 10:59] LABS: HEMATOCRIT 41.5 % (42.0-52.0); HEMOGLOBIN 13.9 G/DL (14.2-18.0); MEAN CORPUSCULAR VOLUME 98 FL (80-99); PLATELET COUNT 137 K/UL (150-450); RED BLOOD COUNT 4.24 M/UL (4.70-6.10); RED CELL DISTRIBUTION WIDTH 13.1 % (11.6-14.8); WHITE BLOOD COUNT 9.3 K/UL (4.8-10.8)
[2018-05-08 11:07] LABS: ANION GAP 23 mmol/L (5-15); BLOOD UREA NITROGEN 12 mg/dL (7-18); CALCIUM 9.1 MG/DL (8.5-10.1); CARBON DIOXIDE 15 MMOL/L (21-32); CHLORIDE 103 MMOL/L (98-107); CREATININE 1.7 MG/DL (0.55-1.30); POTASSIUM 3.7 MMOL/L (3.5-5.1); SODIUM 141 MMOL/L (136-145)
[2018-05-08 11:12] LABS: ALANINE AMINOTRANSFERASE 25 U/L (12-78); ALBUMIN 3.8 G/DL (3.4-5.0); ALBUMIN/GLOBULIN RATIO 0.9 (1.0-2.7); ALKALINE PHOSPHATASE 77 U/L (46-116); ASPARTATE AMINO TRANSFERASE 46 U/L (15-37); BILIRUBIN,TOTAL 0.9 MG/DL (0.2-1.0); CREATINE KINASE 95 U/L (26-308)
--- NOTE | 2018-05-08 11:51 | Diagnostic Imaging Report ---
Indication: Altered mental status, seizure at home Technique: spiral acquisitions obtained through the brain. Angled axial and coronal 5 x 5 mm slices were reconstructed. No IV contrast utilized. Radiation dose was minimized using automated exposure control Total dose length product 1305.71 mGycm. CTDIvol(s) 70.38 mGy Comparison: 01/25/2015 FINDINGS: No acute hemorrhage or edema. No mass effect or midline shift. There is age-related enlargement of the ventricles and extra axial CSF spaces, most striking in the cerebellum. There is periventricular deep white matter ischemic change. Normal rodriguez-white differentiation. Visualized orbits are unremarkable. Visualized sinuses are unremarkable. Intact calvarium. There is some soft tissue thickening of the high right parietal scalp, not evident previously. There is also some soft tissue thickening of the right supraorbital scalp which is also evident previously. When compared to prior study, the degree of volume loss has progressed. Findings compared to prior exam, IMPRESSION: Age-related volume loss, progressive since prior study 01/25/2015 Negative for acute intercranial bleed or mass effect High right parietal scalp soft tissue contusion. Correlate with clinical findings and any history of trauma The CT scanner at [facility] is accredited by the [employer] and the scans are performed using protocols designed to limit radiation exposure to as low as reasonably achievable to attain images of sufficient resolution adequate for diagnostic evaluation
[2018-05-08 12:52] LABS: APPEARANCE,URINE CLEAR; BILIRUBIN, URINE NEGATIVE (NEGATIVE); GLUCOSE, URINE (UA) NEGATIVE (NEGATIVE); KETONES,URINE 2+ (NEGATIVE); LEUKOCYTE ESTERASE ,URINE 1+ (NEGATIVE); NITRITE,URINE NEGATIVE (NEGATIVE); PH,URINE 5 (4.5-8.0); PROTEIN,URINE 2+ (NEGATIVE); UROBILINOGEN,URINE 4 MG/DL (0.0-1.0)
[2018-05-08 12:58] VITALS: BP 138/73
[2018-05-08 12:59] LABS: COLOR,URINE YELLOW
--- NOTE | 2018-05-08 13:30 | Emergency Room Report ---
History of Present Illness General Chief Complaint: Seizure Source: Patient, EMS Present Illness HPI This patient presents for breakthrough seizures. Apparently he's had 2 seizures in the last 24 hours. Family reports he drinks alcohol heavily. The patient himself has no complaints. The patient is alert and oriented. He normally takes Keppra for his seizures. He has no other complaints. Allergies: Coded Allergies: AMOXICILLIN (Verified Allergy, Unknown, 09/07/08) EGG (Verified Allergy, Unknown, RASH, 12/23/10) PENICILLIN (Unverified Allergy, Unknown, 01/05/15) PENICILLINS (Verified Allergy, Unknown, Rash, 01/27/12) Pork (Unverified Allergy, Unknown, 12/28/13) copied from uncoded section UNABLE TO ASSESS (Unverified , 01/25/15) Patient History Past Medical History: see triage record, DM, HTN, seizures, other - ETOH abuse Social History: Reports: alcohol use - Heavy; Denies: smoking, drug use Reviewed Nursing Documentation: PMH: Agreed; PSxH: Agreed Nursing Documentation-PMH Past Medical History: No History, Except For Hx Cardiac Problems: Yes Hx Hypertension: Yes Hx Diabetes: Yes Hx Cancer: No Hx Gastrointestinal Problems: No History Of Psychiatric Problem: Yes - etoh abuse Hx Seizures: Yes Review of Systems All Other Systems: negative except mentioned in HPI Physical Exam Vital Signs Date Time Temp Pulse Resp B/P (MAP) Pulse Ox O2 Delivery O2 Flow Rate FiO2 05/08/18 09:58 98.1 130 16 151/82 98 Room Air Sp02 EP Interpretation: reviewed, normal General Appearance: no apparent distress, alert, GCS 15, non-toxic Head: normocephalic, other - R. parietal swelling/cephalohematoma Eyes: bilateral eye normal inspection, bilateral eye PERRL ENT: hearing grossly normal, normal pharynx, no angioedema, normal voice Neck: full range of motion, supple/symm/no masses Respiratory: chest non-tender, lungs clear, normal breath sounds, no respiratory distress, no retraction, no accessory muscle use, speaking full sentences Cardiovascular #1: regular rate, rhythm, no edema Gastrointestinal: normal bowel sounds, non tender, soft, non-distended, no guarding, no rebound Rectal: deferred Musculoskeletal: back normal, gait/station normal, normal range of motion, non- tender Neurologic: alert, oriented x3, responsive, motor strength/tone normal, sensory intact, speech normal Psychiatric: judgement/insight normal, memory normal, mood/affect normal, no suicidal/homicidal ideation Skin: normal color, no rash, warm/dry, well hydrated Medical Decision Making Diagnostic Impression: Primary Impression: Seizure disorder ER Course I suspect the seizures that the patient is presenting with is non-emergent in etiology. The patient has a history of seizures in the past and has returned to baseline with normal neurologic status. The patient is not immunocompromised with no history of known structural brain disease. The patient does not have persistent altered mental status, fever or new focal neurologic deficit. Laboratory workup was noncontributory. I doubt meningitis so a lumbar puncture was not performed. The patient was counseled that, though unlikely, the possibility of an emergent cause of seizure may still be present and that the patient should return immediately if symptoms persist or worsen. I believe the patient is stable for discharge to followup with the primary care provider for further workup. Laboratory Tests Test 05/08/18 10:25 05/08/18 12:25 White Blood Count 9.3 K/UL (4.8-10.8) Red Blood Count 4.24 M/UL (4.70-6.10) L Hemoglobin 13.9 G/DL (14.2-18.0) L Hematocrit 41.5 % (42.0-52.0) L Mean Corpuscular Volume 98 FL (80-99) Mean Corpuscular Hemoglobin 32.8 PG (27.0-31.0) H Mean Corpuscular Hemoglobin Concent 33.5 G/DL (32.0-36.0) Red Cell Distribution Width 13.1 % (11.6-14.8) Platelet Count 137 K/UL (150-450) L Mean Platelet Volume 9.2 FL (6.5-10.1) Neutrophils (%) (Auto) % (45.0-75.0) Lymphocytes (%) (Auto) % (20.0-45.0) Monocytes (%) (Auto) % (1.0-10.0) Eosinophils (%) (Auto) % (0.0-3.0) Basophils (%) (Auto) % (0.0-2.0) Differential Total Cells Counted 100 Neutrophils % (Manual) 86 % (45-75) H Lymphocytes % (Manual) 6 % (20-45) L Monocytes % (Manual) 5 % (1-10) Eosinophils % (Manual) 1 % (0-3) Basophils % (Manual) 2 % (0-2) Band Neutrophils 0 % (0-8) Platelet Estimate Decreased L Platelet Morphology Normal Red Blood Cell Morphology Normal Sodium Level 141 MMOL/L (136-145) Potassium Level 3.7 MMOL/L (3.5-5.1) Chloride Level 103 MMOL/L (98-107) Carbon Dioxide Level 15 MMOL/L (21-32) L Anion Gap 23 mmol/L (5-15) H Blood Urea Nitrogen 12 mg/dL (7-18) Creatinine 1.7 MG/DL (0.55-1.30) H Estimate Glomerular Filtration Rate 41.5 mL/min (>60) Glucose Level 155 MG/DL (74-106) H Calcium Level 9.1 MG/DL (8.5-10.1) Total Bilirubin 0.9 MG/DL (0.2-1.0) Aspartate Amino Transferase (AST) 46 U/L (15-37) H Alanine Aminotransferase (ALT) 25 U/L (12-78) Alkaline Phosphatase 77 U/L (46-116) Total Creatine Kinase 95 U/L (26-308) Total Protein 7.8 G/DL (6.4-8.2) Albumin 3.8 G/DL (3.4-5.0) Globulin 4.0 g/dL Albumin/Globulin Ratio 0.9 (1.0-2.7) L Acetaminophen Level < 2 MCG/ML (10-30) L Serum Alcohol < 3 mg/dL Urine Color Yellow Urine Appearance Clear Urine pH 5 (4.5-8.0) Urine Specific [place] 1.025 (1.005-1.035) Urine Protein 2+ (NEGATIVE) H Urine Glucose (UA) Negative (NEGATIVE) Urine Ketones 2+ (NEGATIVE) H Urine Blood 3+ (NEGATIVE) H Urine Nitrite Negative (NEGATIVE) Urine Bilirubin Negative (NEGATIVE) Urine Urobilinogen 4 MG/DL (0.0-1.0) H Urine Leukocyte Esterase 1+ (NEGATIVE) H Urine RBC 0-2 /HPF (0 - 0) H Urine WBC 0-2 /HPF (0 - 0) Urine Squamous Epithelial Cells Occasional /LPF Urine Amorphous Sediment Moderate /LPF (NONE) H Urine Bacteria Few /HPF (NONE) Urine Opiates Screen Negative (NEGATIVE) Urine Barbiturates Screen Negative (NEGATIVE) Phencyclidine (PCP) Screen Negative (NEGATIVE) Urine Amphetamines Screen Negative (NEGATIVE) Urine Benzodiazepines Screen Negative (NEGATIVE) Urine Cocaine Screen Negative (NEGATIVE) Urine Marijuana (THC) Screen Negative (NEGATIVE) EKG Diagnostic Results Rate: tachycardiac Rhythm: other - S.tachycardia ST Segments: no acute changes Rhythm Strip Diag. Results EP Interpretation: yes Rate: 110's Rhythm: no PVC's, no ectopy, other - S.tachycardia CT/MRI/US Diagnostic Results CT/MRI/US Diagnostic Results : Imaging Test Ordered: CT head Impression No acute findings. Specifically no intracranial bleed, mass effect or edema. See official report. Last Vital Signs Date Time Temp Pulse Resp B/P (MAP) Pulse Ox O2 Delivery O2 Flow Rate FiO2 05/08/18 12:58 98.1 98 16 138/73 100 Room Air Status: improved Disposition: HOME, SELF-CARE Condition: Improved Referrals: [facility],REFERR[facility] (PCP) Patient Instructions: Seizure, Adult Cortney Plata DO May 08, 2018 13:30
[2018-05-08] MEDS ORDERED: KEPPRA1000 MG ORAL (13:32)
[2018-05-08 13:47] VITALS: BP 129/76
[2018-05-08 13:48] VITALS: BP 129/76
== END 2018-05-08 13:50 | disposition home or self-care (01) ==
LOC: EDBD 10:02 → EMR 10:37
DX: G40.909 Epilepsy, unspecified, not intractable, without status epilepticus (principal); E11.9 Type 2 diabetes mellitus without complications; I10 Essential (primary) hypertension; F10.10 Alcohol abuse, uncomplicated; Z91.012 Allergy to eggs; Z88.0 Allergy status to penicillin; Z91.018 Allergy to other foods
CPT/HCPCS: 36415; 70450; 80053; 80299; 80307; 81003; 82550; 82962; 85007; 85025; 93005; 96360; 99284; G0480; 80329

== ENCOUNTER 2019-07-31 16:38 | Emergency (ER) | payer OTHER ==
[~2019-07-31] VITALS: Ht 165.1 cm; Wt 81.6 kg
--- NOTE | 2019-07-31 16:37 | NUR ---
ED Nurse Note: PT brought in by ambulance from the street for ETOH intoxication. pt is currently alert x3.
[2019-07-31 16:38] VITALS: BP 120/76
--- NOTE | 2019-07-31 16:52 | NUR ---
ED Nurse Note: went to ct
--- NOTE | 2019-07-31 17:10 | NUR ---
ED Nurse Note: Back from CT
--- NOTE | 2019-07-31 17:57 | Diagnostic Imaging Report ---
EXAM: CT Head Without Intravenous Contrast CLINICAL HISTORY: AMS TECHNIQUE: Axial computed tomography images of the head/brain without intravenous contrast. CTDI is 60 mGy and DLP is 1304.2 mGy-cm. One or more of the following dose reduction techniques were used: automated exposure control, adjustment of the mA and/or kV according to patient size, use of iterative reconstruction technique. COMPARISON: CT head on 05/08/2018 FINDINGS: Brain: No acute infarct or hemorrhage identified. No extra-axial fluid collection. No mass effect or midline shift. Stable mild areas of hypoattenuation in the supratentorial white matter likely represent chronic small vessel ischemic changes. Ventricles and sulci: Stable mild prominence of the ventricles and sulci is likely secondary to cerebral volume loss. Bones: Normal. No bony lesion or fracture. Subcutaneous tissues: Normal. Sinuses: Normal. No air-fluid levels or mucosal thickening. Mastoid air cells: Normal. Orbits: Grossly unremarkable. Other: Atherosclerotic calcifications in the intracranial vasculature. IMPRESSION: 1. No acute intracranial abnormality. 2. Stable mild chronic small vessel ischemic changes and cerebral volume loss.
--- NOTE | 2019-07-31 18:22 | NUR ---
ED Nurse Note: PT in bed resting with eyes closed. no acute distress is noted
[2019-07-31 18:23] VITALS: BP 124/80
--- NOTE | 2019-07-31 19:04 | NUR ---
ED Nurse Note: report given to THERESA Titus Endorsed plan of care
--- NOTE | 2019-07-31 19:05 | Emergency Room Report ---
History of Present Illness General Chief Complaint: Alcohol Intoxication Source: Patient (David Tolbert DO) Present Illness HPI Patient presents by paramedics for reports of sleeping on the street patient had appeared initially altered And contacted by paramedics Upon arrival the patient was also fairly somnolent After initial evaluation and sometime in the emergency room patient has become more awake and oriented Patient denies any headache at this time denies any chest pain Patient is well-known to our facility and has multiple presentations with alcohol disease and intoxication (TrevorDavid rosenthal DO) Allergies: Coded Allergies: AMOXICILLIN (Verified Allergy, Unknown, 09/07/08) EGG (Verified Allergy, Unknown, RASH, 12/23/10) PENICILLIN (Unverified Allergy, Unknown, 01/05/15) PENICILLINS (Verified Allergy, Unknown, Rash, 01/27/12) Pork (Unverified Allergy, Unknown, 12/28/13) copied from uncoded section UNABLE TO ASSESS (Unverified , 01/25/15) Patient History Past Medical History: see triage record Reviewed Nursing Documentation: PMH: Agreed; PSxH: Agreed (David Tolbert DO) Nursing Documentation-PMH Past Medical History: No History, Except For Hx Cardiac Problems: Yes Hx Hypertension: Yes Hx Diabetes: Yes Hx Cancer: No Hx Gastrointestinal Problems: No Hx Seizures: Yes (David Tolbert DO) Review of Systems All Other Systems: negative except mentioned in HPI (MigueviancaDavid APARICIO) Physical Exam Vital Signs Date Time Temp Pulse Resp B/P (MAP) Pulse Ox O2 Delivery O2 Flow Rate FiO2 07/31/19 16:32 98.8 93 16 124/76 (92) 98 Room Air Sp02 EP Interpretation: reviewed, normal General Appearance: no apparent distress Head: normocephalic, atraumatic Eyes: bilateral eye PERRL, bilateral eye EOMI ENT: EOM grossly intact Neck: supple Respiratory: lungs clear, no respiratory distress, no retraction Cardiovascular #1: regular rate, rhythm Gastrointestinal: non tender, soft Genitourinary: no CVA tenderness Musculoskeletal: normal inspection Neurologic: alert Skin: no rash Lymphatic: no adenopathy (David Tolbert DO) Medical Decision Making Diagnostic Impression: Primary Impression: Acute alcoholic intoxication Qualified Codes: F10.920 - Alcohol use, unspecified with intoxication, uncomplicated ER Course Initially on arrival the patient had a CT imaging of the brain performed as he was not responsive to our physical or verbal stimuli This was found to be negative and patient has not become more oriented is awake requesting to go urinate he also does admit to drinking alcohol earlier today Patient is resting and pending further Sobering (David Tolbert DO) ER Course This patient signed out to me. He presents with alcohol intoxication. He is well-known here. Slept for several hours and now awake. Walk to the bathroom without any difficulty. Said he wants to go. Will discharge home. (Lencho Brewer MD) CT/MRI/US Diagnostic Results CT/MRI/US Diagnostic Results : Impression CT head no acute disease (David Tolbert DO) Last Vital Signs Date Time Temp Pulse Resp B/P (MAP) Pulse Ox O2 Delivery O2 Flow Rate FiO2 07/31/19 18:23 98.3 89 17 124/80 98 Room Air Status: improved (David Tolbert DO) Status: improved (Lencho Brewer MD) Disposition: HOME, SELF-CARE Condition: Stable Patient Instructions: Alcohol Intoxication, [id number] Additional Instructions: Abstain from drugs and alcohol. Follow-up with your doctor in 7 days. Return if worse. David Tolbert DO Jul 31, 2019 19:05 Lencho Brewer MD Aug 01, 2019 01:26
[2019-07-31 22:00] VITALS: BP 127/98
--- NOTE | 2019-08-01 01:24 | NUR ---
ambulated to restroom with steady gait. Willing to go home. Waiting for discharge instructions.
[2019-08-01 01:30] VITALS: BP 137/63
[2019-08-01 01:31] VITALS: BP 137/63
== END 2019-08-01 01:30 | disposition home or self-care (01) ==
LOC: EDBD 16:38 → EMR 16:55
DX: F10.129 Alcohol abuse with intoxication, unspecified (principal); E11.9 Type 2 diabetes mellitus without complications; I10 Essential (primary) hypertension; G40.909 Epilepsy, unspecified, not intractable, without status epilepticus; Z88.0 Allergy status to penicillin; Z91.012 Allergy to eggs; Z91.018 Allergy to other foods
CPT/HCPCS: 70450; Z7502; 99284